=== PATIENT | female | born 1955 | race Caucasian/White ===

== ENCOUNTER 2019-05-17 15:41 | Emergency (ER) | payer OTHER, SELFPAY ==
[2019-05-17 15:42] VITALS: BP 191/91; PULSE 79; RESP 16; TEMP 36.8; BMI 32.8
--- NOTE | 2019-05-17 16:03 | RAD_ITS ---
STUDY: X-RAY - RIGHT FOOT CLINICAL: Female, 63 years old. Toe injury TECHNIQUE: 3 view(s) of the foot. COMPARISON: None. FINDINGS: Slightly angulated fracture of the distal aspect of the proximal phalanx of the fifth digits seen. Metacarpal bones are intact. IMPRESSION: Slightly angulated fifth digit proximal phalangeal acute fracture Electronically Signed: Iron Mcnair, at 16:33 EST Tel , Service support , RAD/Foot min 3 Views
--- NOTE | 2019-05-17 16:03 | ED.VIS.LOWEX ---
History of Present Illness Chief Complaint: Lower Extremity Injury Informant: Patient Occurred: Today - JPELOY Mechanism/Context: Injury Context: Sudden Onset Timing: Continuous Quality of Pain: Aching Location: right 5th toe Current Severity: Moderate Maximum Severity: Severe Worsened by: moving, walking, palpation Relieved by: leaving alone, rest Associated Symptoms: Loss of Funtion. Negative for: Parasthesia, Weakness Narrative: Accidentally walked into leg of a piece of furniture, injuring right 5th toe. No bleeding. On no anticoagulants. - Past Medical History (1) HTN (hypertension) Status: Chronic (2) Hypothyroid Status: Chronic Past Medical History - Allergies and Home Meds Allergies/Adverse Reactions: Allergies cephalexin [From Keflex] Adverse Reaction (Verified 05/17/19 16:01) Rash Primary Care Physician: NOT,DEFINED [Primary Care Provider] - Lives: Spouse/ Significant Other Drugs: None Review of Systems Musculoskeletal: Reports: Extremity Pain. Denies: Neck pain, Back pain, Swelling Neurological: Denies: Weakness, Numbness Physical Exam Vital Signs/Narrative: Vital Signs Temp Pulse Resp BP 05/17/19 15:42 98.3 F 79 16 191/91 H Inital Vital Signs reviewed: Yes - Extremity Exam Right Toe: Deformity - valgus deformity, at MTPJ; entire toe down to and including distal 5th MT tender. skin intact. minor bruising. no midfoot deformities/tenderness., Limited ROM - 5th toe General: Well nourished, Well developed Head: Normocephalic, Atraumatic Skin: Normal color, No rash, Trauma - ecchymosis right 5th toe, skin intact; no other signs of foot trauma Neurological: Alert, Oriented x3, Cranial nerves II-XII grossly intact, Normal Strength, Normal Sensation Psychological: Normal affect, Normal Mood Diagnostic/Tx/Re-eval - Medical Decision Making On my interpretation, 3 view x-ray of the right foot shows an angulated fracture of the shaft of the proximal phalanx of the fifth toe. This is consistent with her exam. Her toes will be celeste taped together, she will be given a postop shoe, offered analgesics, and advised to follow-up with podiatry or orthopedics when she gets to her hometown [place] as she is here visiting family. She will be offered crutches if she needs them as well. ED Disposition - Plan for ED Patient: Disposition: Home or Assisted Living Diagnosis: Closed fracture of phalanx of right fifth toe Instructions: FRACTURE, Toe [Closed] Prescriptions: Hydrocodone Bitart/Apap 5-325 [[place] 5MG-325MG] 1 tab PO Q4H PRN PRN 2 Days #10 tab PRN Reason: Pain Prescription Printed Referrals: Doctor,Your [STAFF PHYSICIAN] - 1-2 Weeks (commercial loan underwriter or foot/ankle orthopaedics)
[2019-05-17] MEDS: HYDROcodone Bitartrate/Apap 5/325 Tablet PO (17:06)
== END 2019-05-17 17:17 | disposition home or self-care (01) ==
LOC: ED 16:33
PROVIDERS: Emergency Provider Emergency Medicine
DX: S92.501A Displaced unspecified fracture of right lesser toe(s), initial encounter for closed fracture (principal); W22.03XA Walked into furniture, initial encounter; Y92.9 Unspecified place or not applicable; Y99.9 Unspecified external cause status; E03.9 Hypothyroidism, unspecified; I10 Essential (primary) hypertension; Z88.1 Allergy status to other antibiotic agents; M21.071 Valgus deformity, not elsewhere classified, right ankle
CPT/HCPCS: 73630; 99283